=== PATIENT | male | born 1995 | race Caucasian/White ===

== ENCOUNTER 2016-12-13 10:01 | Emergency (ER) | payer SELFPAY ==
[~2016-12-13] VITALS: Ht 172.7 cm; Wt 68.0 kg
[2016-12-13 10:15] VITALS: BP 121/86
--- NOTE | 2016-12-13 10:25 | PHYS DOC ---
General Chief Complaint: SKIN PROBLEM Stated Complaint: NA Time Seen by MD: 10:10 Source: patient Exam Limitations: no limitations Problems: History of Present Illness Initial Comments Patient is a 21-year-old male who comes in the emergency department complaining of a yeast infection. Patient states he looked online and has determined he has a yeast infection. He complains of one week inguinal penile and testicular itching and redness. He states that his skin is dry and scaly he denies any urinary symptoms. No fever chills sweats or myalgias no ulcerations or other types of skin lesions. No history of STD I Timing/Duration: 1 week Severity: severe Modifying Factors: improves with other Associated Symptoms: rash Allergies: Coded Allergies: No Known Drug Allergies (Unverified , 12/13/16) Past Medical History Medical History: no pertinent history Surgical History: noncontributory Social History Smoker: cigarettes Alcohol: none Drugs: marijuana Review of Systems Constitutional: denies chills, denies fever Respiratory: denies cough, denies shortness of breath Cardiovascular: denies chest pain, denies palpitations Gastrointestinal: denies nausea, denies vomiting Skin: see HPI Physical Exam General Appearance: WD/WN, no apparent distress Ear, Nose, Throat: normal ENT inspection Respiratory: normal breath sounds, no respiratory distress Gastrointestinal: non tender, soft, other (genitourinary: Normal circumcised male, inguinal erythema and skin dryness no vesicles abrasions lacerations) Extremities: non-tender, normal inspection Neurologic/Psychiatric: alert, normal mood/affect, oriented x 3 Skin: warm/dry (inguinal rash as above) Orders, Labs, Meds Patient was advised to discontinue tobacco and marijuana abuse. Departure Time of Disposition: 10:23 Disposition: 01 HOME, SELF-CARE Diagnosis: tinea cruris Patient Instructions: Jock Itch, [id number] Additional Instructions: Please review the patient education materials. Prescription: Itraconazole, hydroxyzine No driving or operating machinery after taking hydroxyzine to sedation. Follow-up with your doctor in 7-10 days for recheck. Return to ED with new or changing symptoms. SITA DRAPER DO Dec 13, 2016 10:25
[2016-12-13] MEDS ORDERED: HYDR25TA PO (10:27)
[2016-12-13] MEDS ORDERED: ITRA100C PO (10:27)
== END 2016-12-13 10:33 | disposition home or self-care (01) ==
LOC: ER 10:01
DX: B35.6 Tinea cruris (principal); F17.210 Nicotine dependence, cigarettes, uncomplicated
CPT/HCPCS: 99283